=== PATIENT | female | born 1990 ===

== ENCOUNTER → 2020-05-13 | Outpatient (CLI) | payer OTHER | END | disposition home or self-care (01) | LOC: PRENATAL 10:19 | PROVIDERS: ATTEND Obstetrics & Gynecology Maternal & Fetal Medicine | DX: O35.0XX1 Maternal care for (suspected) central nervous system malformation in fetus, fetus 1 (principal); O35.3XX1 Maternal care for (suspected) damage to fetus from viral disease in mother, fetus 1; O98.512 Other viral diseases complicating pregnancy, second trimester; Z36.89 Encounter for other specified antenatal screening; Z3A.26 26 weeks gestation of pregnancy ==

== ENCOUNTER 2022-10-22 14:32 | Outpatient (CLI) | payer OTHER | END 2022-10-22 16:45 | disposition home or self-care (01) | LOC: PRENATAL 14:32 | PROVIDERS: ATTEND Obstetrics & Gynecology Maternal & Fetal Medicine | DX: O36.80X0 Pregnancy with inconclusive fetal viability, not applicable or unspecified (principal); O30.90 Multiple gestation, unspecified, unspecified trimester; Z36 Encounter for antenatal screening of mother; Z3A.13 13 weeks gestation of pregnancy ==

== ENCOUNTER 2022-11-01 10:36 | Outpatient (CLI) | payer OTHER | END 2022-11-01 13:21 | disposition home or self-care (01) | LOC: PRENATAL 10:36 | PROVIDERS: ATTEND Obstetrics & Gynecology Maternal & Fetal Medicine | DX: O26.849 Uterine size-date discrepancy, unspecified trimester (principal); O26.859 Spotting complicating pregnancy, unspecified trimester; Z3A.15 15 weeks gestation of pregnancy ==

== ENCOUNTER 2022-12-12 10:05 | Outpatient (CLI) | payer OTHER | END 2022-12-12 12:25 | disposition home or self-care (01) | LOC: PRENATAL 10:05 | PROVIDERS: ATTEND Obstetrics & Gynecology Maternal & Fetal Medicine | DX: O35.9XX0 Maternal care for (suspected) fetal abnormality and damage, unspecified, not applicable or unspecified (principal); O30.90 Multiple gestation, unspecified, unspecified trimester; Z14.8 Genetic carrier of other disease; Z3A.20 20 weeks gestation of pregnancy ==

== ENCOUNTER 2023-02-27 10:35 | Outpatient (CLI) | payer OTHER | END 2023-02-27 16:08 | disposition home or self-care (01) | LOC: PRENATAL 10:35 | PROVIDERS: ATTEND Obstetrics & Gynecology Maternal & Fetal Medicine | DX: O26.849 Uterine size-date discrepancy, unspecified trimester (principal); O36.8199 Decreased fetal movements, unspecified trimester, other fetus; O30.90 Multiple gestation, unspecified, unspecified trimester; Z3A.31 31 weeks gestation of pregnancy ==